=== PATIENT | female | born 1945 | race Caucasian/White ===

== ENCOUNTER → 2018-06-18 | Outpatient (CLI) | payer MEDICARE ==
[~2018-06-18] MED LIST: REGADENOSON 0.4 MG/5 ML SYRINGE ONE
== END | disposition home or self-care (01) ==
LOC: CVU 10:39
PROVIDERS: ATTEND Internal Medicine Cardiovascular Disease
DX: I08.0 Rheumatic disorders of both mitral and aortic valves (principal); I10 Essential (primary) hypertension; E78.5 Hyperlipidemia, unspecified
CPT/HCPCS: 78452; 93017; 93306; A9502; J2785

== ENCOUNTER 2018-12-13 04:00 | Inpatient (IN) | payer MEDICARE ==
[~2018-12-13] VITALS: Ht 172.7 cm; Wt 118.2 kg
--- NOTE | 2018-12-13 04:19 | NUR ---
PT BROUGHT BACK TO ROOM FROM [facility].
[2018-12-13] MEDS ORDERED: METO50TA82 PO (04:54)
[2018-12-13] MEDS ORDERED: ATOR10TA9 PO (04:54)
--- NOTE | 2018-12-13 05:05 | NUR ---
PT UNABLE TO VOID AT THIS TIME FOR UA. AMBULATORY WITH STEADY GAIT.
[2018-12-13 05:22] LABS: MEAN CORPUSCULAR HEMOGLOBIN 29.4 pg (27.0-34.8); MEAN CORPUSCULAR HGB CONC 33.2 g/dL (32.4-35.8); MEAN CORPUSCULAR VOLUME 88.4 fL (80-100); MEAN PLATELET VOLUME 9.6 fL (7.4-10.4); PLATELET COUNT 445 x10^3/uL (130-400); RED BLOOD COUNT 4.61 x10^6/uL (3.82-5.3); RED CELL DISTRIBUTION WIDTH 14.1 % (9.6-15.2)
[2018-12-13 05:32] LABS: ALBUMIN 2.4 g/dL (3.4-5.0); ANION GAP 10 mmol/L (5-15); CALCIUM 8.6 mg/dL (8.5-10.1); CHLORIDE 100 mmol/L (98-107)
[2018-12-13 05:36] LABS: ALANINE AMINOTRANSFERASE 27 U/L (12-78); ALKALINE PHOSPHATASE 149 U/L (45-117); BILIRUBIN,TOTAL 0.8 mg/dL (0.2-1.0); CREATININE 0.79 mg/dL (0.55-1.02); TOTAL PROTEIN 7.2 g/dL (6.4-8.2)
[2018-12-13 06:11] LABS: <PLATELET ESTIMATE> INCREASED; <PLT MORPHOLOGY> NORMAL PLT MORPH; <RBC MORPHOLOGY> NORMAL; BASOPHILS # (AUTO) 0.03 x10^3/uL (0-0.1); BASOPHILS % (AUTO) 0 % (0-1); EOSINOPHILS # (AUTO) 0.05 x10^3/uL (0-0.4); EOSINOPHILS % (AUTO) 0 % (1-7); LYMPHOCYTES % (AUTO) 9 % (22-44); MD MORPH REVIEW ONLY; MONOCYTES # (AUTO) 1.75 x10^3/uL (0.2-0.8); MONOCYTES % (AUTO) 9 % (2-9); NEUTROPHILS # (AUTO) 16.02 x10^3/uL (1.8-6.8); NEUTROPHILS % (AUTO) 82 % (42-75); TOXIC GRAN 1+
[2018-12-13] MEDS ORDERED: OMNIPAQUE 350 MG/ML, 100ML BOTTLE ONE (06:32)
[2018-12-13] MEDS ORDERED: DICYCLOMINE 20 MG TABLET ONE (06:53)
[2018-12-13] MEDS ORDERED: DICYCLOMINE 20 MG TABLET PO ONE (07:00)
--- NOTE | 2018-12-13 07:05 | NUR ---
PT PLACED ON OXYGEN. MD NOTIFIED.
--- NOTE | 2018-12-13 07:06 | NUR ---
PT RESTING IN BED. DENIES ANY NEEDS OR CONCERNS AT THIS TIME.
--- NOTE | 2018-12-13 07:06 | NUR ---
REPORT GIVEN TO DAMION GONZALEZ.
[2018-12-13 07:45] LABS: MICROSCOPIC NOT IND
--- NOTE | 2018-12-13 07:54 | NUR ---
ERP AND THIS NURSE AT BEDSIDE TO UPDATE PATIENT ON PLAN OF CARE. PT VERBALIZES UNDERSTANDING. DENIES ANY NEEDS OR CONCERNS AT THIS TIME.
[2018-12-13 07:58] LABS: CULTURE INDICATED? NO
[2018-12-13] MEDS ORDERED: METRONIDAZOLE PMX 500MG/100ML 100 ML ONE (08:25)
[2018-12-13] MEDS ORDERED: MORPHINE SULFATE 4 MG/ML, 1ML ONE ×2 (08:25→10:31)
[2018-12-13] MEDS ORDERED: SODIUM CHLORIDE 0.9% 1,000 ML IV ONE (08:30)
[2018-12-13] MEDS ORDERED: METRONIDAZOLE PMX 500MG/100ML 100 ML IV ONE (08:30)
[2018-12-13] MEDS ORDERED: AMPICILLIN/SULBACTAM 3 GM in SODIUM CHLORIDE 0.9% 100 ML IV ONE (08:30)
[2018-12-13] MEDS: MORPHINE SULFATE 4 MG/ML, 1ML IVPush PRN ×3 (08:37→19:54)
[2018-12-13] MEDS ORDERED: LACTATED RINGERS 1,000 ML IV SCH (09:00)
[2018-12-13] MEDS: ENOXAPARIN 40 MG/0.4 ML SQ SCH (09:00)
--- NOTE | 2018-12-13 09:35 | NUR ---
SURGEON AT BEDSIDE. PT UPDATED ON PLAN OF CARE. VERBALIZES UNDERSTANDING. DENIES ANY CURRENT NEEDS OR CONCERNS.
[2018-12-13 09:45] LABS: INTERNATIONAL NORMALIZED RATIO 1.02 (0.93-1.1); PROTHROMBIN TIME 10.7 Seconds (9.6-11.5)
--- NOTE | 2018-12-13 10:54 | NUR ---
PT AMBULATED TO RESTROOM, STRONG INDEPENDENT GAIT. RETURNED TO BED WITHOUT ISSUE. GIVEN MORPHINE PER REQUEST. EMOTIONAL SUPPORT PROVIDED, QUESTIONS ADDRESSED APPROPRIATE. PT RESTING AT THIS TIME. DENIES ANY FURTHER NEEDS OR CONCERNS.
--- NOTE | 2018-12-13 11:59 | NUR ---
PT RESTING IN BED, NAD NOTED.
[2018-12-13] MEDS ORDERED: FENTANYL PF 250 MCG/5ML ONE (13:08)
[2018-12-13] MEDS ORDERED: MIDAZOLAM 1 MG/ML, 2ML ONE (13:09)
[2018-12-13] MEDS ORDERED: SCOPOLAMINE PATCH, 1.5MG PATCH.TD72 TD ONE (13:33)
[2018-12-13] MEDS ORDERED: SUGAMMADEX 200 MG/2 ML IVPush ONE (15:05)
[2018-12-13] MEDS ORDERED: PROPOFOL 10 MG/ML, 20ML ONE (15:06)
[2018-12-13] MEDS ORDERED: NEOSTIGMINE 1 MG/ML, 10ML ONE (15:06)
[2018-12-13] MEDS ORDERED: SUCCINYLCHOLINE 20 MG/ML, 10ML ONE (15:06)
[2018-12-13] MEDS ORDERED: CEFAZOLIN 1,000 MG ONE (15:06)
[2018-12-13] MEDS ORDERED: ONDANSETRON 2MG/ML, 2ML ONE (15:06)
[2018-12-13] MEDS ORDERED: KETOROLAC 30 MG/1 ML ONE (15:06)
[2018-12-13] MEDS ORDERED: DEXAMETHASONE 4 MG/ML, 1ML ONE (15:06)
[2018-12-13] MEDS ORDERED: GLYCOPYRROLATE 0.2MG/1ML, 5ML ONE (15:06)
[2018-12-13] MEDS ORDERED: ROCURONIUM 10MG/ML,5ML ONE (15:06)
[2018-12-13] MEDS ORDERED: FENTANYL PF 100 MCG/2ML ONE ×2 (15:06→15:48)
[2018-12-13] MEDS ORDERED: DIAZEPAM 5 MG/ML, 2ML IVPush PRN (15:30)
[2018-12-13] MEDS ORDERED: ACETAMINOPHEN 325 MG TABLET PO PRN (15:30)
[2018-12-13] MEDS ORDERED: ALBUTEROL SULFATE 2.5 MG/3 ML NPPB PRN (15:30)
[2018-12-13] MEDS ORDERED: MEPERIDINE/PF 25MG/0.5ML IVPush PRN (15:30)
[2018-12-13] MEDS ORDERED: hydrALAzine 20 MG/ML, 1ML IV PRN (15:30)
[2018-12-13] MEDS ORDERED: HYDROmorphone 2 MG/ML, 1ML IVPush PRN (15:30)
[2018-12-13] MEDS ORDERED: LABETALOL 5MG/ML, 20ML IV PRN (15:30)
[2018-12-13] MEDS ORDERED: OXYcodone 5 MG/5 ML ORAL.SOL UDC PO PRN (15:30)
[2018-12-13] MEDS ORDERED: PROMETHAZINE 25 MG/ML, 1ML IV PRN (15:30)
[2018-12-13] MEDS ORDERED: ACETAMINOPHEN 650 MG/20.3 ML UDC ONE (15:48)
[2018-12-13] MEDS ORDERED: OXYcodone 5 MG/5 ML ORAL.SOL UDC ONE (15:49)
[2018-12-13] MEDS: FENTANYL PF 100 MCG/2ML IV PRN ×3 (15:50→16:20)
[2018-12-13] MEDS: METRONIDAZOLE PMX 500MG/100ML 100 ML IV SCH (18:25)
[2018-12-13 19:31] VITALS: BP 102/65
[2018-12-13] MEDS: AMPICILLIN/SULBACTAM 3 GM in SODIUM CHLORIDE 0.9% 100 ML IV SCH (19:54)
[2018-12-13] MEDS: ATORVASTATIN 10 MG TABLET PO SCH (19:54)
[2018-12-14 00:43] VITALS: BP 99/55
[2018-12-14] MEDS: AMPICILLIN/SULBACTAM 3 GM in SODIUM CHLORIDE 0.9% 100 ML IV SCH ×4 (02:17→22:44)
[2018-12-14] MEDS: HYDROmorphone 2 MG/ML, 1ML IVPush PRN ×5 (02:23→19:36)
[2018-12-14] MEDS: METRONIDAZOLE PMX 500MG/100ML 100 ML IV SCH ×3 (02:58→18:03)
[2018-12-14 03:02] VITALS: BP 100/68
[2018-12-14 04:54] LABS: ANION GAP 9 mmol/L (5-15); CALCIUM 8.5 mg/dL (8.5-10.1); CHLORIDE 103 mmol/L (98-107)
[2018-12-14 04:57] LABS: CREATININE 0.83 mg/dL (0.55-1.02)
[2018-12-14 05:01] LABS: BASOPHILS % (AUTO) 0 % (0-1); EOSINOPHILS # (AUTO) 0.04 x10^3/uL (0-0.4); EOSINOPHILS % (AUTO) 0 % (1-7); LYMPHOCYTES # (AUTO) 0.79 x10^3/uL (1-3.4); LYMPHOCYTES % (AUTO) 5 % (22-44); MD NO; MEAN CORPUSCULAR HEMOGLOBIN 29.1 pg (27.0-34.8); MEAN CORPUSCULAR HGB CONC 32.5 g/dL (32.4-35.8); MEAN CORPUSCULAR VOLUME 89.5 fL (80-100); MEAN PLATELET VOLUME 9.4 fL (7.4-10.4); MONOCYTES # (AUTO) 0.61 x10^3/uL (0.2-0.8); MONOCYTES % (AUTO) 4 % (2-9); NEUTROPHILS # (AUTO) 13.44 x10^3/uL (1.8-6.8); NEUTROPHILS % (AUTO) 90 % (42-75); PLATELET COUNT 412 x10^3/uL (130-400); RED BLOOD COUNT 4.53 x10^6/uL (3.82-5.3); RED CELL DISTRIBUTION WIDTH 14.3 % (9.6-15.2)
[2018-12-14] MEDS: LACTATED RINGERS 1,000 ML IV SCH ×3 (05:11→18:03)
[2018-12-14 06:55] VITALS: BP 104/63
[2018-12-14] MEDS ORDERED: SODIUM CHLORIDE 0.9% 1,000ML IVBOLUS ONE ×2 (07:30)
[2018-12-14] MEDS ORDERED: PHENOL THROAT SPRAY BOTTLE MM PRN (07:30)
[2018-12-14 11:00] VITALS: BP 100/58
[2018-12-14] MEDS: METOPROLOL TARTRATE 50 MG TABLET PO SCH (11:04)
[2018-12-14] MEDS: ENOXAPARIN 40 MG/0.4 ML SQ SCH (11:05)
[2018-12-14 12:58] VITALS: BP 112/67
[2018-12-14 20:00] VITALS: BP 116/71
[2018-12-14] MEDS: ATORVASTATIN 10 MG TABLET PO SCH (22:43)
[2018-12-14] MEDS: HYDROcodone/APAP 5/325 TABLET PO PRN (22:43)
[2018-12-15 00:30] VITALS: BP 120/73
[2018-12-15] MEDS: LACTATED RINGERS 1,000 ML IV SCH (01:55)
[2018-12-15] MEDS: HYDROmorphone 2 MG/ML, 1ML IVPush PRN ×4 (02:04→15:01)
[2018-12-15] MEDS: METRONIDAZOLE PMX 500MG/100ML 100 ML IV SCH ×3 (03:04→20:15)
[2018-12-15 04:30] LABS: MEAN CORPUSCULAR HEMOGLOBIN 28.5 pg (27.0-34.8); MEAN CORPUSCULAR HGB CONC 32.4 g/dL (32.4-35.8); MEAN CORPUSCULAR VOLUME 87.7 fL (80-100); MEAN PLATELET VOLUME 9.3 fL (7.4-10.4); PLATELET COUNT 456 x10^3/uL (130-400); RED BLOOD COUNT 4.18 x10^6/uL (3.82-5.3); RED CELL DISTRIBUTION WIDTH 14.6 % (9.6-15.2)
[2018-12-15 04:36] LABS: ALANINE AMINOTRANSFERASE 26 U/L (12-78); ALBUMIN 1.5 g/dL (3.4-5.0); ANION GAP 7 mmol/L (5-15); CALCIUM 8.2 mg/dL (8.5-10.1); CHLORIDE 106 mmol/L (98-107); CREATININE 0.76 mg/dL (0.55-1.02)
[2018-12-15 04:38] LABS: ALKALINE PHOSPHATASE 125 U/L (45-117); BILIRUBIN,TOTAL 0.5 mg/dL (0.2-1.0); TOTAL PROTEIN 5.5 g/dL (6.4-8.2)
[2018-12-15 04:40] LABS: MD YES
[2018-12-15 05:06] LABS: BAND#(MANUAL) 3.76 x10^3/uL; BANDS%(MANUAL) 18 % (0-7); LYMPH#(MANUAL) 1.46 x10^3/uL (1-3.4); LYMPHS% (MANUAL) 7 % (22-44); MONOS#(MANUAL) 1.05 x10^3/uL (0.3-2.7); MONOS% (MANUAL) 5 % (2-9); SEG#(MANUAL) 14.63 x10^3/uL (1.8-6.8); SEGS% (MANUAL) 70 % (42-75)
[2018-12-15 05:07] LABS: <PLATELET ESTIMATE> INCREASED; <PLT MORPHOLOGY> NORMAL PLT MORPH; ANISOCYTOSIS 1+; POLYCHROMASIA 1+; TOXIC GRAN 1+
[2018-12-15] MEDS ORDERED: SODIUM CHLORIDE 0.9%, 500ML IVBOLUS ONE (05:30)
[2018-12-15] MEDS: AMPICILLIN/SULBACTAM 3 GM in SODIUM CHLORIDE 0.9% 100 ML IV SCH ×4 (05:33→22:36)
[2018-12-15 07:49] VITALS: BP 130/56
[2018-12-15 09:20] VITALS: BP 116/56
[2018-12-15] MEDS: ENOXAPARIN 40 MG/0.4 ML SQ SCH (09:22)
[2018-12-15] MEDS: METOPROLOL TARTRATE 50 MG TABLET PO SCH (09:22)
[2018-12-15] MEDS: SODIUM CHLORIDE 0.9% 1,000 ML IV SCH ×4 (09:22→22:21)
[2018-12-15 12:52] VITALS: BP 115/83
[2018-12-15] MEDS ORDERED: FUROSEMIDE 20 MG/2 ML IV ONE (15:30)
[2018-12-15 19:38] VITALS: BP 108/69
[2018-12-15] MEDS: ATORVASTATIN 10 MG TABLET PO SCH (20:14)
[2018-12-15] MEDS: HYDROcodone/APAP 5/325 TABLET PO PRN (20:14)
[2018-12-16 00:55] VITALS: BP 120/72
[2018-12-16] MEDS: HYDROmorphone 2 MG/ML, 1ML IVPush PRN ×6 (01:02→21:47)
[2018-12-16] MEDS: SODIUM CHLORIDE 0.9% 1,000 ML IV SCH ×3 (03:41→19:38)
[2018-12-16 04:43] LABS: MEAN CORPUSCULAR HEMOGLOBIN 28.2 pg (27.0-34.8); MEAN CORPUSCULAR VOLUME 88.2 fL (80-100); PLATELET COUNT 431 x10^3/uL (130-400); RED BLOOD COUNT 3.78 x10^6/uL (3.82-5.3); RED CELL DISTRIBUTION WIDTH 14.7 % (9.6-15.2)
[2018-12-16 04:51] LABS: CHLORIDE 109 mmol/L (98-107)
[2018-12-16] MEDS: AMPICILLIN/SULBACTAM 3 GM in SODIUM CHLORIDE 0.9% 100 ML IV SCH ×4 (04:52→22:25)
[2018-12-16 05:00] LABS: ALANINE AMINOTRANSFERASE 19 U/L (12-78); ALBUMIN 1.4 g/dL (3.4-5.0); ALKALINE PHOSPHATASE 95 U/L (45-117); ANION GAP 7 mmol/L (5-15); BILIRUBIN,TOTAL 0.4 mg/dL (0.2-1.0); CREATININE 0.51 mg/dL (0.55-1.02); TOTAL PROTEIN 5.1 g/dL (6.4-8.2)
[2018-12-16] MEDS: METRONIDAZOLE PMX 500MG/100ML 100 ML IV SCH ×3 (05:25→21:10)
[2018-12-16 05:43] LABS: MD YES
[2018-12-16 05:45] LABS: <PLATELET ESTIMATE> INCREASED; <PLT MORPHOLOGY> NORMAL PLT MORPH; ANISOCYTOSIS 1+; BAND#(MANUAL) 0.95 x10^3/uL; BANDS%(MANUAL) 4 % (0-7); EOS#(MANUAL) 0.24 x10^3/uL (0.0-0.4); EOS% (MANUAL) 1 % (1-7); LYMPH#(MANUAL) 2.38 x10^3/uL (1-3.4); LYMPHS% (MANUAL) 10 % (22-44); MONOS#(MANUAL) 0.95 x10^3/uL (0.3-2.7); MONOS% (MANUAL) 4 % (2-9); POLYCHROMASIA 1+; SEG#(MANUAL) 19.28 x10^3/uL (1.8-6.8); SEGS% (MANUAL) 81 % (42-75)
[2018-12-16 05:46] LABS: TOXIC GRAN 1+
[2018-12-16 07:00] VITALS: BP 119/59
[2018-12-16] MEDS: METOPROLOL TARTRATE 50 MG TABLET PO SCH (09:00)
[2018-12-16] MEDS: ENOXAPARIN 40 MG/0.4 ML SQ SCH (09:18)
[2018-12-16] MEDS: PIPERACILLIN/TAZO/PMX 3.375GM 50 ML IV SCH ×2 (12:28→18:33)
[2018-12-16 12:49] VITALS: BP 119/70
[2018-12-16] MEDS: HYDROcodone/APAP 5/325 TABLET PO PRN (16:44)
[2018-12-16] MEDS: KETOROLAC 30 MG/1 ML IM SCH (19:38)
[2018-12-16 20:13] VITALS: BP 123/82
[2018-12-16] MEDS: ATORVASTATIN 10 MG TABLET PO SCH (21:00)
[2018-12-17] MEDS ORDERED: LORazepam 0.5MG TABLET PO PRN
[2018-12-17] MEDS: PIPERACILLIN/TAZO/PMX 3.375GM 50 ML IV SCH ×2 (00:04→06:38)
[2018-12-17] MEDS: KETOROLAC 30 MG/1 ML IM SCH ×4 (01:43→20:07)
[2018-12-17 03:08] VITALS: BP 122/76
[2018-12-17] MEDS: HYDROmorphone 2 MG/ML, 1ML IVPush PRN ×4 (03:36→15:46)
[2018-12-17] MEDS: AMPICILLIN/SULBACTAM 3 GM in SODIUM CHLORIDE 0.9% 100 ML IV SCH ×2 (04:28→10:33)
[2018-12-17 04:39] LABS: MEAN CORPUSCULAR HEMOGLOBIN 28.9 pg (27.0-34.8); MEAN CORPUSCULAR HGB CONC 32.3 g/dL (32.4-35.8); MEAN CORPUSCULAR VOLUME 89.4 fL (80-100); MEAN PLATELET VOLUME 9.2 fL (7.4-10.4); PLATELET COUNT 572 x10^3/uL (130-400); RED BLOOD COUNT 4.66 x10^6/uL (3.82-5.3); RED CELL DISTRIBUTION WIDTH 14.9 % (9.6-15.2)
[2018-12-17 04:50] LABS: ALBUMIN 1.3 g/dL (3.4-5.0); ANION GAP 10 mmol/L (5-15); CALCIUM 7.3 mg/dL (8.5-10.1); CHLORIDE 112 mmol/L (98-107)
[2018-12-17 04:52] LABS: CREATININE 0.81 mg/dL (0.55-1.02)
[2018-12-17] MEDS: SODIUM CHLORIDE 0.9% 1,000 ML IV SCH ×3 (05:15→10:15)
[2018-12-17] MEDS: METRONIDAZOLE PMX 500MG/100ML 100 ML IV SCH (05:15)
[2018-12-17 05:29] LABS: MD YES
[2018-12-17 05:31] LABS: BAND#(MANUAL) 1.52 x10^3/uL; BANDS%(MANUAL) 4 % (0-7); LYMPH#(MANUAL) 0.38 x10^3/uL (1-3.4); LYMPHS% (MANUAL) 1 % (22-44); MONOS#(MANUAL) 1.91 x10^3/uL (0.3-2.7); MONOS% (MANUAL) 5 % (2-9); SEG#(MANUAL) 34.29 x10^3/uL (1.8-6.8); SEGS% (MANUAL) 90 % (42-75)
[2018-12-17 05:32] LABS: <PLATELET ESTIMATE> INCREASED; <PLT MORPHOLOGY> NORMAL PLT MORPH; ANISOCYTOSIS 1+
[2018-12-17 07:11] VITALS: BP 136/62
[2018-12-17] MEDS: METOPROLOL TARTRATE 50 MG TABLET PO SCH ×2 (07:35→09:00)
[2018-12-17] MEDS ORDERED: OMNIPAQUE 350 MG/ML, 150 ML BOTTLE ONE (08:18)
[2018-12-17] MEDS: ENOXAPARIN 40 MG/0.4 ML SQ SCH (10:15)
[2018-12-17] MEDS: PIPERACILLIN/TAZO/PMX 4.5GM 100 ML IV SCH ×2 (13:08→20:47)
[2018-12-17] MEDS ORDERED: HAEMOPH B POLY CONJ-TET TOX/PF 10 MCG/0.5 ML INJ IM-VACC ONE (13:30)
[2018-12-17] MEDS ORDERED: MENING VAC A,C,Y,W-135 DIP/PF 0.5 ML AGE<55 IM-VACC ONE (13:30)
[2018-12-17] MEDS ORDERED: PNEUMOCOCCAL 23 VACCINE IM-VACC ONE (13:30)
[2018-12-17] MEDS: SODIUM CHLORIDE 0.45% 1,000 ML IV SCH ×2 (14:23→22:35)
[2018-12-17 15:35] VITALS: BP 125/77
[2018-12-17] MEDS: FLUCONAZOLE 400 MG/200 ML 200 ML IV SCH (15:46)
[2018-12-17 19:25] VITALS: BP 112/70
[2018-12-17] MEDS: ATORVASTATIN 10 MG TABLET PO SCH (20:07)
[2018-12-18] MEDS: ONDANSETRON 2MG/ML, 2ML IVPush PRN ×2 (00:51→05:40)
[2018-12-18 01:16] VITALS: BP 101/65
[2018-12-18] MEDS: PIPERACILLIN/TAZO/PMX 4.5GM 100 ML IV SCH ×4 (01:58→21:16)
[2018-12-18] MEDS: KETOROLAC 30 MG/1 ML IM SCH ×4 (01:59→21:15)
[2018-12-18] MEDS: SODIUM CHLORIDE 0.45% 1,000 ML IV SCH ×2 (02:01→17:28)
[2018-12-18 05:02] LABS: ANION GAP 11 mmol/L (5-15); CALCIUM 6.6 mg/dL (8.5-10.1); CHLORIDE 112 mmol/L (98-107); CREATININE 1.24 mg/dL (0.55-1.02)
[2018-12-18 05:04] LABS: MEAN CORPUSCULAR HEMOGLOBIN 28.8 pg (27.0-34.8); MEAN CORPUSCULAR HGB CONC 32.4 g/dL (32.4-35.8); MEAN CORPUSCULAR VOLUME 88.7 fL (80-100); MEAN PLATELET VOLUME 9.3 fL (7.4-10.4); PLATELET COUNT 570 x10^3/uL (130-400); RED BLOOD COUNT 4.39 x10^6/uL (3.82-5.3); RED CELL DISTRIBUTION WIDTH 15.3 % (9.6-15.2)
[2018-12-18 05:51] LABS: MD YES
[2018-12-18 05:52] LABS: BAND#(MANUAL) 0.73 x10^3/uL; BANDS%(MANUAL) 2 % (0-7); LYMPH#(MANUAL) 2.55 x10^3/uL (1-3.4); LYMPHS% (MANUAL) 7 % (22-44); MONOS#(MANUAL) 1.09 x10^3/uL (0.3-2.7); MONOS% (MANUAL) 3 % (2-9); SEG#(MANUAL) 32.03 x10^3/uL (1.8-6.8); SEGS% (MANUAL) 88 % (42-75)
[2018-12-18 05:53] LABS: ANISOCYTOSIS 1+
[2018-12-18 05:55] LABS: <PLATELET ESTIMATE> INCREASED; LARGE PLATELETS 1+; PMNS WITH VACUOLES 1+; POLYCHROMASIA 1+
[2018-12-18 06:55] VITALS: BP 112/75
[2018-12-18] MEDS ORDERED: POTASSIUM CHLORIDE 20 MEQ in SODIUM CHLORIDE 0.9% 250 ML IV ONE (08:00)
[2018-12-18] MEDS: METOPROLOL TARTRATE 50 MG TABLET PO SCH (08:16)
[2018-12-18] MEDS: ENOXAPARIN 40 MG/0.4 ML SQ SCH (08:18)
[2018-12-18] MEDS ORDERED: TPN PER PHARMACY MC PRN (10:30)
[2018-12-18 13:41] VITALS: BP 110/73
[2018-12-18] MEDS: FLUCONAZOLE 400 MG/200 ML 200 ML IV SCH (14:22)
[2018-12-18] MEDS ORDERED: 0.9 % SODIUM CHLORIDE 10 ML VIAL IV STA (15:31)
[2018-12-18] MEDS ORDERED: SODIUM CHLORIDE 0.9% 1,000ML IV ONE (16:30)
[2018-12-18] MEDS ORDERED: LORazepam 2 MG/ML, 1ML IVPush ONE (16:30)
[2018-12-18] MEDS: HYDROmorphone 2 MG/ML, 1ML IVPush PRN (16:56)
[2018-12-18] MEDS ORDERED: DEXTROSE 50%, 50ML SYRINGE IVPush PRN (17:00)
[2018-12-18] MEDS ORDERED: FILTER, DISP 1.2 MICRON FOR TPN/PVN IV PRN (17:00)
[2018-12-18] MEDS ORDERED: DEXTROSE 70% IV SCH (17:00)
[2018-12-18] MEDS ORDERED: [UNRECOGNIZED DRUG - OTHER] IV SCH (17:00)
[2018-12-18] MEDS ORDERED: DEXTROSE 10% 500 ML IV PRN (17:00)
[2018-12-18] MEDS ORDERED: SMOF TPN IV SCH (17:00)
[2018-12-18] MEDS ORDERED: FAT EMUL IV SCH (17:00)
[2018-12-18] MEDS ORDERED: AMINO ACID 10% IV SCH (17:00)
[2018-12-18 20:45] VITALS: BP 119/77
[2018-12-18] MEDS: INSULIN REGULAR MEDIUM DOSE Q6H X 48HRS SQ-INSULIN SCH (21:00)
[2018-12-18] MEDS ORDERED: LORazepam 2 MG/ML, 1ML ONE (21:11)
[2018-12-19] MEDS: SODIUM CHLORIDE 0.45% 1,000 ML IV SCH ×2 (00:49→20:18)
[2018-12-19 01:05] VITALS: BP 117/70
[2018-12-19] MEDS: PIPERACILLIN/TAZO/PMX 4.5GM 100 ML IV SCH ×4 (02:30→23:21)
[2018-12-19] MEDS: KETOROLAC 30 MG/1 ML IM SCH (02:30)
[2018-12-19] MEDS: INSULIN REGULAR MEDIUM DOSE Q6H X 48HRS SQ-INSULIN SCH ×4 (03:31→21:43)
[2018-12-19 05:36] LABS: MEAN CORPUSCULAR HEMOGLOBIN 28.7 pg (27.0-34.8); MEAN CORPUSCULAR HGB CONC 32.6 g/dL (32.4-35.8); MEAN CORPUSCULAR VOLUME 88.1 fL (80-100); MEAN PLATELET VOLUME 8.8 fL (7.4-10.4); PLATELET COUNT 456 x10^3/uL (130-400); RED BLOOD COUNT 3.81 x10^6/uL (3.82-5.3); RED CELL DISTRIBUTION WIDTH 15.5 % (9.6-15.2)
[2018-12-19 05:46] LABS: ALBUMIN 1.1 g/dL (3.4-5.0); ANION GAP 9 mmol/L (5-15); CALCIUM 6.9 mg/dL (8.5-10.1); CHLORIDE 112 mmol/L (98-107)
[2018-12-19 05:53] LABS: MD YES
[2018-12-19 05:55] LABS: BAND#(MANUAL) 1.31 x10^3/uL; BANDS%(MANUAL) 4 % (0-7); LYMPH#(MANUAL) 2.94 x10^3/uL (1-3.4); LYMPHS% (MANUAL) 9 % (22-44); METAMYELOCYTES# (MANUAL) 0.33 x10^3/uL (0-0); METAMYELOCYTES% (MANUAL) 1 % (0-1); MONOS#(MANUAL) 0.33 x10^3/uL (0.3-2.7); MONOS% (MANUAL) 1 % (2-9); NRBC % (MANUAL) 2 % (0-1); SEGS% (MANUAL) 85 % (42-75)
[2018-12-19 05:56] LABS: <PLATELET ESTIMATE> INCREASED; ANISOCYTOSIS 1+; POLYCHROMASIA 1+
[2018-12-19 05:57] LABS: <PLT MORPHOLOGY> NORMAL PLT MORPH
[2018-12-19] MEDS ORDERED: POTASSIUM CHLORIDE 20 MEQ in SODIUM CHLORIDE 0.9% 250 ML IV ONE ×2 (06:00→06:07)
[2018-12-19 06:02] LABS: ALANINE AMINOTRANSFERASE 18 U/L (12-78); ALKALINE PHOSPHATASE 155 U/L (45-117); BILIRUBIN,TOTAL 0.5 mg/dL (0.2-1.0); CREATININE 1.12 mg/dL (0.55-1.02); PREALBUMIN 3.4 mg/dL (20.0-40.0); TOTAL PROTEIN 4.8 g/dL (6.4-8.2); TRIGLYCERIDES 183 mg/dL (50-200)
[2018-12-19 08:50] VITALS: BP 121/66
[2018-12-19] MEDS: KETOROLAC 30 MG/1 ML IM/IV SCH ×3 (09:40→20:14)
[2018-12-19] MEDS: PANTOPRAZOLE 40 MG IV IVPush SCH (09:42)
[2018-12-19] MEDS: ENOXAPARIN 40 MG/0.4 ML SQ SCH (09:43)
[2018-12-19 13:37] VITALS: BP 115/72
[2018-12-19] MEDS: FLUCONAZOLE 400 MG/200 ML 200 ML IV SCH (15:14)
[2018-12-19 16:01] LABS: HCT (SEDRATE) 32.3 % (34.6-47.8)
[2018-12-19] MEDS ORDERED: [UNRECOGNIZED DRUG - OTHER] IV SCH (17:00)
[2018-12-19] MEDS ORDERED: FILTER, DISP 1.2 MICRON FOR TPN/PVN IV PRN (17:00)
[2018-12-19] MEDS ORDERED: DEXTROSE 70% IV SCH (17:00)
[2018-12-19] MEDS ORDERED: SMOF TPN IV SCH (17:00)
[2018-12-19] MEDS ORDERED: FAT EMUL IV SCH (17:00)
[2018-12-19] MEDS ORDERED: AMINO ACID 10% IV SCH (17:00)
[2018-12-19 19:49] VITALS: BP 127/61
[2018-12-19] MEDS: HYDROmorphone 2 MG/ML, 1ML IVPush PRN (23:28)
[2018-12-20 01:40] VITALS: BP 122/76
[2018-12-20] MEDS: KETOROLAC 30 MG/1 ML IM/IV SCH ×4 (02:35→20:10)
[2018-12-20] MEDS: INSULIN REGULAR MEDIUM DOSE Q6H X 48HRS SQ-INSULIN SCH ×3 (03:35→16:37)
[2018-12-20] MEDS: PIPERACILLIN/TAZO/PMX 4.5GM 100 ML IV SCH (04:49)
[2018-12-20 05:47] LABS: CHLORIDE 112 mmol/L (98-107)
[2018-12-20 05:55] LABS: ANION GAP 7 mmol/L (5-15); CALCIUM 7.2 mg/dL (8.5-10.1); CREATININE 0.86 mg/dL (0.55-1.02)
[2018-12-20 06:45] VITALS: BP 137/84
[2018-12-20 07:45] LABS: MEAN CORPUSCULAR HEMOGLOBIN 28.1 pg (27.0-34.8); MEAN CORPUSCULAR HGB CONC 32.2 g/dL (32.4-35.8); MEAN CORPUSCULAR VOLUME 87.4 fL (80-100); MEAN PLATELET VOLUME 8.9 fL (7.4-10.4); PLATELET COUNT 447 x10^3/uL (130-400); RED BLOOD COUNT 3.78 x10^6/uL (3.82-5.3); RED CELL DISTRIBUTION WIDTH 15.7 % (9.6-15.2)
[2018-12-20 08:29] LABS: MD YES
[2018-12-20 08:31] LABS: <PLATELET ESTIMATE> INCREASED; <PLT MORPHOLOGY> NORMAL PLT MORPH; ANISOCYTOSIS 1+; BANDS%(MANUAL) 15 % (0-7); LYMPH#(MANUAL) 2.52 x10^3/uL (1-3.4); LYMPHS% (MANUAL) 7 % (22-44); METAMYELOCYTES# (MANUAL) 0.36 x10^3/uL (0-0); METAMYELOCYTES% (MANUAL) 1 % (0-1); MONOS#(MANUAL) 1.08 x10^3/uL (0.3-2.7); MONOS% (MANUAL) 3 % (2-9); MYELOCYTES# (MANUAL) 0.36 x10^3/uL (0-0); MYELOCYTES% (MANUAL) 1 % (0-0); POLYCHROMASIA 1+; SEG#(MANUAL) 26.28 x10^3/uL (1.8-6.8); SEGS% (MANUAL) 73 % (42-75); TOXIC GRAN 1+
[2018-12-20 08:33] LABS: PMNS WITH VACUOLES 1+
[2018-12-20] MEDS: AMPICILLIN/SULBACTAM 3 GM in SODIUM CHLORIDE 0.9% 100 ML IV SCH ×3 (08:53→20:12)
[2018-12-20] MEDS: PANTOPRAZOLE 40 MG IV IVPush SCH (08:57)
[2018-12-20] MEDS: ENOXAPARIN 40 MG/0.4 ML SQ SCH (09:00)
[2018-12-20 12:23] VITALS: BP 137/82
[2018-12-20] MEDS ORDERED: [UNRECOGNIZED DRUG - OTHER] IV SCH (17:00)
[2018-12-20] MEDS ORDERED: SMOF TPN IV SCH (17:00)
[2018-12-20] MEDS ORDERED: FILTER, DISP 1.2 MICRON FOR TPN/PVN IV PRN (17:00)
[2018-12-20] MEDS ORDERED: AMINO ACID 10% IV SCH (17:00)
[2018-12-20] MEDS ORDERED: DEXTROSE 70% IV SCH (17:00)
[2018-12-20] MEDS ORDERED: FAT EMUL IV SCH (17:00)
[2018-12-20] MEDS: HYDROmorphone 2 MG/ML, 1ML IVPush PRN (17:19)
[2018-12-20 19:15] VITALS: BP 138/64
[2018-12-21] VITALS (8 sets, daily range): BP systolic 111–175; BP diastolic 72–104
[2018-12-21] MEDS: HYDROmorphone 2 MG/ML, 1ML IVPush PRN ×3 (00:16→20:00)
[2018-12-21] MEDS: KETOROLAC 30 MG/1 ML IM/IV SCH ×4 (02:17→21:27)
[2018-12-21] MEDS: AMPICILLIN/SULBACTAM 3 GM in SODIUM CHLORIDE 0.9% 100 ML IV SCH ×4 (02:19→21:26)
[2018-12-21] MEDS: SODIUM CHLORIDE 0.45% 1,000 ML IV SCH ×2 (04:56→23:25)
[2018-12-21 05:16] LABS: MEAN CORPUSCULAR HEMOGLOBIN 29.1 pg (27.0-34.8); MEAN CORPUSCULAR HGB CONC 32.7 g/dL (32.4-35.8); MEAN CORPUSCULAR VOLUME 88.9 fL (80-100); PLATELET COUNT 394 x10^3/uL (130-400); RED BLOOD COUNT 3.59 x10^6/uL (3.82-5.3); RED CELL DISTRIBUTION WIDTH 16.2 % (9.6-15.2)
[2018-12-21 05:25] LABS: ANION GAP 3 mmol/L (5-15); CALCIUM 7.7 mg/dL (8.5-10.1); CHLORIDE 113 mmol/L (98-107); CREATININE 0.65 mg/dL (0.55-1.02)
[2018-12-21 05:36] LABS: MD YES
[2018-12-21 05:39] LABS: BAND#(MANUAL) 4.75 x10^3/uL; BANDS%(MANUAL) 13 % (0-7); EOS#(MANUAL) 0.37 x10^3/uL (0.0-0.4); EOS% (MANUAL) 1 % (1-7); LYMPH#(MANUAL) 3.65 x10^3/uL (1-3.4); LYMPHS% (MANUAL) 10 % (22-44); MONOS#(MANUAL) 1.46 x10^3/uL (0.3-2.7); MONOS% (MANUAL) 4 % (2-9); MYELOCYTES# (MANUAL) 0.37 x10^3/uL (0-0); MYELOCYTES% (MANUAL) 1 % (0-0); NRBC % (MANUAL) 1 % (0-1); SEG#(MANUAL) 25.92 x10^3/uL (1.8-6.8); SEGS% (MANUAL) 71 % (42-75)
[2018-12-21 05:41] LABS: <PLATELET ESTIMATE> INCREASED; <PLT MORPHOLOGY> NORMAL PLT MORPH; ANISOCYTOSIS 1+; POLYCHROMASIA 1+; TOXIC GRAN 1+
[2018-12-21] MEDS: PANTOPRAZOLE 40 MG IV IVPush SCH (07:51)
[2018-12-21] MEDS: ENOXAPARIN 40 MG/0.4 ML SQ SCH (07:51)
[2018-12-21] MEDS ORDERED: INSULIN REGULAR MEDIUM DOSE QDAY SQ-INSULIN SCH (09:00)
[2018-12-21] MEDS ORDERED: AMINO ACID 10% IV SCH (17:00)
[2018-12-21] MEDS ORDERED: FAT EMUL IV SCH (17:00)
[2018-12-21] MEDS ORDERED: [UNRECOGNIZED DRUG - OTHER] IV SCH (17:00)
[2018-12-21] MEDS ORDERED: DEXTROSE 70% IV SCH (17:00)
[2018-12-21] MEDS ORDERED: SMOF TPN IV SCH (17:00)
[2018-12-21] MEDS: INSULIN REGULAR MEDIUM DOSE QDAY SQ-INSULIN SCH (21:45)
[2018-12-22 00:22] VITALS: BP 139/84
[2018-12-22] MEDS: KETOROLAC 30 MG/1 ML IM/IV SCH ×4 (03:22→21:46)
[2018-12-22] MEDS: AMPICILLIN/SULBACTAM 3 GM in SODIUM CHLORIDE 0.9% 100 ML IV SCH ×4 (03:26→21:47)
[2018-12-22] MEDS: INSULIN REGULAR MEDIUM DOSE QDAY SQ-INSULIN SCH ×4 (03:27→21:00)
[2018-12-22 06:02] LABS: MEAN CORPUSCULAR HGB CONC 32.5 g/dL (32.4-35.8); MEAN CORPUSCULAR VOLUME 89.2 fL (80-100); MEAN PLATELET VOLUME 8.9 fL (7.4-10.4); PLATELET COUNT 338 x10^3/uL (130-400); RED BLOOD COUNT 3.37 x10^6/uL (3.82-5.3); RED CELL DISTRIBUTION WIDTH 16.3 % (9.6-15.2)
[2018-12-22 06:04] LABS: ALANINE AMINOTRANSFERASE 17 U/L (12-78); ALBUMIN 1.1 g/dL (3.4-5.0); ANION GAP 5 mmol/L (5-15); CALCIUM 7.8 mg/dL (8.5-10.1); CHLORIDE 110 mmol/L (98-107); CREATININE 0.53 mg/dL (0.55-1.02)
[2018-12-22 06:06] LABS: ALKALINE PHOSPHATASE 210 U/L (45-117); BILIRUBIN,TOTAL 0.6 mg/dL (0.2-1.0); TOTAL PROTEIN 4.9 g/dL (6.4-8.2)
[2018-12-22 06:40] LABS: BASOPHILS % (AUTO) 0 % (0-1); EOSINOPHILS # (AUTO) 0.37 x10^3/uL (0-0.4); EOSINOPHILS % (AUTO) 1 % (1-7); LYMPHOCYTES % (AUTO) 4 % (22-44); MD SCAN; MONOCYTES # (AUTO) 1.32 x10^3/uL (0.2-0.8); MONOCYTES % (AUTO) 5 % (2-9); NEUTROPHILS # (AUTO) 25.16 x10^3/uL (1.8-6.8); NEUTROPHILS % (AUTO) 89 % (42-75)
[2018-12-22 07:32] VITALS: BP 133/78
[2018-12-22] MEDS: PANTOPRAZOLE 40 MG IV IVPush SCH (09:27)
[2018-12-22] MEDS: ENOXAPARIN 40 MG/0.4 ML SQ SCH (09:27)
[2018-12-22] MEDS: SODIUM CHLORIDE 0.45% 1,000 ML IV SCH ×2 (09:28→20:14)
[2018-12-22 14:11] VITALS: BP 143/79
[2018-12-22] MEDS ORDERED: SMOF TPN IV SCH (17:00)
[2018-12-22] MEDS ORDERED: AMINO ACID 10% IV SCH (17:00)
[2018-12-22] MEDS ORDERED: [UNRECOGNIZED DRUG - OTHER] IV SCH (17:00)
[2018-12-22] MEDS ORDERED: DEXTROSE 70% IV SCH (17:00)
[2018-12-22] MEDS ORDERED: FAT EMUL IV SCH (17:00)
[2018-12-22] MEDS: FILTER, DISP 1.2 MICRON FOR TPN/PVN IV PRN (17:44)
[2018-12-22] MEDS: ONDANSETRON 2MG/ML, 2ML IVPush PRN (18:06)
[2018-12-22] MEDS: HYDROmorphone 2 MG/ML, 1ML IVPush PRN (18:06)
[2018-12-22 20:19] VITALS: BP 119/74
[2018-12-23 01:22] VITALS: BP 127/81
[2018-12-23] MEDS: AMPICILLIN/SULBACTAM 3 GM in SODIUM CHLORIDE 0.9% 100 ML IV SCH ×4 (03:22→21:45)
[2018-12-23] MEDS: KETOROLAC 30 MG/1 ML IM/IV SCH ×4 (03:22→21:45)
[2018-12-23] MEDS: INSULIN REGULAR MEDIUM DOSE QDAY SQ-INSULIN SCH ×4 (03:26→21:00)
[2018-12-23] MEDS: SODIUM CHLORIDE 0.45% 1,000 ML IV SCH ×3 (04:52→23:24)
[2018-12-23 05:16] LABS: MEAN CORPUSCULAR HEMOGLOBIN 29.2 pg (27.0-34.8); MEAN CORPUSCULAR HGB CONC 32.8 g/dL (32.4-35.8); MEAN CORPUSCULAR VOLUME 89.1 fL (80-100); MEAN PLATELET VOLUME 9.2 fL (7.4-10.4); PLATELET COUNT 369 x10^3/uL (130-400); RED BLOOD COUNT 3.21 x10^6/uL (3.82-5.3); RED CELL DISTRIBUTION WIDTH 16.3 % (9.6-15.2)
[2018-12-23 05:25] LABS: CHLORIDE 110 mmol/L (98-107)
[2018-12-23 05:34] LABS: ALANINE AMINOTRANSFERASE 17 U/L (12-78); ALBUMIN 1.1 g/dL (3.4-5.0); ALKALINE PHOSPHATASE 222 U/L (45-117); ANION GAP 4 mmol/L (5-15); BILIRUBIN,TOTAL 0.5 mg/dL (0.2-1.0); CALCIUM 7.9 mg/dL (8.5-10.1); PREALBUMIN 4.9 mg/dL (20.0-40.0); TOTAL PROTEIN 4.9 g/dL (6.4-8.2)
[2018-12-23 05:52] LABS: MD YES
[2018-12-23 05:54] LABS: BAND#(MANUAL) 0.71 x10^3/uL; BANDS%(MANUAL) 3 % (0-7); EOS#(MANUAL) 0.71 x10^3/uL (0.0-0.4); EOS% (MANUAL) 3 % (1-7); LYMPH#(MANUAL) 1.42 x10^3/uL (1-3.4); LYMPHS% (MANUAL) 6 % (22-44); MONOS#(MANUAL) 2.36 x10^3/uL (0.3-2.7); MONOS% (MANUAL) 10 % (2-9); SEG#(MANUAL) 18.41 x10^3/uL (1.8-6.8); SEGS% (MANUAL) 78 % (42-75)
[2018-12-23 05:55] LABS: <PLATELET ESTIMATE> ADEQUATE; <PLT MORPHOLOGY> NORMAL PLT MORPH; ANISOCYTOSIS 1+; POLYCHROMASIA 1+; TOXIC GRAN 1+
[2018-12-23 08:08] VITALS: BP 138/77
[2018-12-23] MEDS: PANTOPRAZOLE 40 MG IV IVPush SCH (08:08)
[2018-12-23] MEDS: ENOXAPARIN 40 MG/0.4 ML SQ SCH (08:08)
[2018-12-23] MEDS: HYDROmorphone 2 MG/ML, 1ML IVPush PRN ×2 (13:50→22:11)
[2018-12-23 14:21] VITALS: BP 145/76
[2018-12-23] MEDS ORDERED: AMINO ACID 10% IV SCH (17:00)
[2018-12-23] MEDS ORDERED: [UNRECOGNIZED DRUG - OTHER] IV SCH (17:00)
[2018-12-23] MEDS ORDERED: DEXTROSE 70% IV SCH (17:00)
[2018-12-23] MEDS ORDERED: FAT EMUL IV SCH (17:00)
[2018-12-23] MEDS ORDERED: SMOF TPN IV SCH (17:00)
[2018-12-23 19:34] VITALS: BP 120/75
[2018-12-24 01:33] VITALS: BP 123/74
[2018-12-24] MEDS: INSULIN REGULAR MEDIUM DOSE QDAY SQ-INSULIN SCH ×3 (03:00→15:00)
[2018-12-24] MEDS: AMPICILLIN/SULBACTAM 3 GM in SODIUM CHLORIDE 0.9% 100 ML IV SCH ×4 (03:11→21:04)
[2018-12-24] MEDS: KETOROLAC 30 MG/1 ML IM/IV SCH (03:11)
[2018-12-24 03:34] LABS: MEAN CORPUSCULAR VOLUME 87.8 fL (80-100); MEAN PLATELET VOLUME 9.1 fL (7.4-10.4); PLATELET COUNT 400 x10^3/uL (130-400); RED BLOOD COUNT 3.22 x10^6/uL (3.82-5.3); RED CELL DISTRIBUTION WIDTH 16.3 % (9.6-15.2)
[2018-12-24 03:46] LABS: ANION GAP 7 mmol/L (5-15); CALCIUM 7.7 mg/dL (8.5-10.1); CHLORIDE 109 mmol/L (98-107); CREATININE 0.54 mg/dL (0.55-1.02)
[2018-12-24 04:06] LABS: MD YES
[2018-12-24 04:09] LABS: ANISOCYTOSIS 1+; BAND#(MANUAL) 0.65 x10^3/uL; BANDS%(MANUAL) 3 % (0-7); EOS#(MANUAL) 0.22 x10^3/uL (0.0-0.4); EOS% (MANUAL) 1 % (1-7); LYMPH#(MANUAL) 1.08 x10^3/uL (1-3.4); LYMPHS% (MANUAL) 5 % (22-44); MONOS#(MANUAL) 0.65 x10^3/uL (0.3-2.7); MONOS% (MANUAL) 3 % (2-9); SEG#(MANUAL) 19.01 x10^3/uL (1.8-6.8); SEGS% (MANUAL) 88 % (42-75)
[2018-12-24 04:10] LABS: <PLATELET ESTIMATE> ADEQUATE; <PLT MORPHOLOGY> NORMAL PLT MORPH; POLYCHROMASIA 1+; TOXIC GRAN 1+
[2018-12-24 08:13] VITALS: BP 143/90
[2018-12-24] MEDS: PANTOPRAZOLE 40 MG IV IVPush SCH (09:22)
[2018-12-24] MEDS: ENOXAPARIN 40 MG/0.4 ML SQ SCH (09:22)
[2018-12-24] MEDS: ONDANSETRON 2MG/ML, 2ML IVPush PRN (09:23)
[2018-12-24] MEDS ORDERED: PROCHLORPERAZINE 5 MG/ML, 2ML IM PRN (10:00)
[2018-12-24] MEDS ORDERED: SCOPOLAMINE PATCH, 1.5MG PATCH.TD72 TD ONE (10:19)
[2018-12-24] MEDS: SCOPOLAMINE PATCH, 1.5MG PATCH.TD72 TD SCH (10:21)
[2018-12-24 14:10] VITALS: BP 154/83
[2018-12-24] MEDS: HYDROmorphone 2 MG/ML, 1ML IVPush PRN ×2 (15:54→21:04)
[2018-12-24] MEDS: FILTER, DISP 1.2 MICRON FOR TPN/PVN IV PRN (16:53)
[2018-12-24] MEDS ORDERED: DEXTROSE 70% IV SCH (17:00)
[2018-12-24] MEDS ORDERED: SMOF TPN IV SCH (17:00)
[2018-12-24] MEDS ORDERED: AMINO ACID 10% IV SCH (17:00)
[2018-12-24] MEDS ORDERED: [UNRECOGNIZED DRUG - OTHER] IV SCH (17:00)
[2018-12-24] MEDS ORDERED: FAT EMUL IV SCH (17:00)
[2018-12-24 20:27] VITALS: BP 123/77
[2018-12-25 00:50] VITALS: BP 136/77
[2018-12-25] MEDS: AMPICILLIN/SULBACTAM 3 GM in SODIUM CHLORIDE 0.9% 100 ML IV SCH ×4 (03:07→21:06)
[2018-12-25 03:37] LABS: MEAN CORPUSCULAR HEMOGLOBIN 28.2 pg (27.0-34.8); MEAN CORPUSCULAR HGB CONC 32.5 g/dL (32.4-35.8); MEAN CORPUSCULAR VOLUME 86.6 fL (80-100); MEAN PLATELET VOLUME 8.9 fL (7.4-10.4); PLATELET COUNT 442 x10^3/uL (130-400); RED BLOOD COUNT 3.14 x10^6/uL (3.82-5.3); RED CELL DISTRIBUTION WIDTH 16.2 % (9.6-15.2)
[2018-12-25 03:46] LABS: ANION GAP 7 mmol/L (5-15); CALCIUM 7.7 mg/dL (8.5-10.1); CHLORIDE 107 mmol/L (98-107); CREATININE 0.51 mg/dL (0.55-1.02)
[2018-12-25 03:56] LABS: BASOPHILS # (AUTO) 0.01 x10^3/uL (0-0.1); BASOPHILS % (AUTO) 0 % (0-1); EOSINOPHILS # (AUTO) 0.05 x10^3/uL (0-0.4); EOSINOPHILS % (AUTO) 0 % (1-7); LYMPHOCYTES # (AUTO) 1.44 x10^3/uL (1-3.4); LYMPHOCYTES % (AUTO) 7 % (22-44); MD NO; MONOCYTES # (AUTO) 1.99 x10^3/uL (0.2-0.8); MONOCYTES % (AUTO) 9 % (2-9); NEUTROPHILS # (AUTO) 17.77 x10^3/uL (1.8-6.8); NEUTROPHILS % (AUTO) 84 % (42-75)
[2018-12-25] MEDS: SODIUM CHLORIDE 0.45% 1,000 ML IV SCH (05:23)
[2018-12-25 06:45] VITALS: BP 133/73
[2018-12-25] MEDS: INSULIN REGULAR 100 UNITS/ML, 3ML VIAL SQ-INSULIN SCH (07:58)
[2018-12-25] MEDS: ENOXAPARIN 40 MG/0.4 ML SQ SCH (10:24)
[2018-12-25] MEDS: PANTOPRAZOLE 40 MG IV IVPush SCH (10:25)
[2018-12-25 14:55] VITALS: BP 140/77
[2018-12-25] MEDS ORDERED: FAT EMUL IV SCH (17:00)
[2018-12-25] MEDS ORDERED: [UNRECOGNIZED DRUG - OTHER] IV SCH (17:00)
[2018-12-25] MEDS ORDERED: SMOF TPN IV SCH (17:00)
[2018-12-25] MEDS ORDERED: DEXTROSE 70% IV SCH (17:00)
[2018-12-25] MEDS ORDERED: AMINO ACID 10% IV SCH (17:00)
[2018-12-25] MEDS: FILTER, DISP 1.2 MICRON FOR TPN/PVN IV PRN (17:38)
[2018-12-25] MEDS: HYDROmorphone 2 MG/ML, 1ML IVPush PRN (18:24)
[2018-12-25 20:29] VITALS: BP 130/56
[2018-12-26 02:02] VITALS: BP 139/70
[2018-12-26] MEDS: HYDROmorphone 2 MG/ML, 1ML IVPush PRN (02:30)
[2018-12-26] MEDS: AMPICILLIN/SULBACTAM 3 GM in SODIUM CHLORIDE 0.9% 100 ML IV SCH ×4 (02:57→21:31)
[2018-12-26] MEDS: SODIUM CHLORIDE 0.45% 1,000 ML IV SCH (02:57)
[2018-12-26 02:59] LABS: ANION GAP 5 mmol/L (5-15); CALCIUM 7.8 mg/dL (8.5-10.1); CHLORIDE 109 mmol/L (98-107); CREATININE 0.41 mg/dL (0.55-1.02)
[2018-12-26 06:43] VITALS: BP 136/76
[2018-12-26] MEDS: ENOXAPARIN 40 MG/0.4 ML SQ SCH (08:58)
[2018-12-26] MEDS: PANTOPRAZOLE 40 MG IV IVPush SCH (08:58)
[2018-12-26] MEDS: INSULIN REGULAR 100 UNITS/ML, 3ML VIAL SQ-INSULIN SCH (09:00)
[2018-12-26 12:59] VITALS: BP 135/73
[2018-12-26] MEDS ORDERED: AMINO ACID 10% IV SCH (17:00)
[2018-12-26] MEDS ORDERED: FAT EMULSIONS IV SCH (17:00)
[2018-12-26] MEDS ORDERED: [UNRECOGNIZED DRUG - OTHER] IV SCH (17:00)
[2018-12-26] MEDS ORDERED: DEXTROSE 70% IV SCH (17:00)
[2018-12-26] MEDS: FILTER, DISP 1.2 MICRON FOR TPN/PVN IV PRN (17:45)
[2018-12-26 20:33] VITALS: BP 141/63
[2018-12-26] MEDS: ENOXAPARIN 30 MG/0.3 ML SQ SCH (21:32)
[2018-12-27] MEDS: HYDROmorphone 2 MG/ML, 1ML IVPush PRN ×2 (00:52→20:38)
[2018-12-27 01:23] VITALS: BP 125/59
[2018-12-27] MEDS: SODIUM CHLORIDE 0.45% 1,000 ML IV SCH ×2 (01:47→13:02)
[2018-12-27] MEDS: AMPICILLIN/SULBACTAM 3 GM in SODIUM CHLORIDE 0.9% 100 ML IV SCH ×2 (03:15→10:20)
[2018-12-27 05:27] LABS: MEAN CORPUSCULAR HEMOGLOBIN 29.2 pg (27.0-34.8); MEAN CORPUSCULAR HGB CONC 33.3 g/dL (32.4-35.8); MEAN CORPUSCULAR VOLUME 87.7 fL (80-100); MEAN PLATELET VOLUME 9.1 fL (7.4-10.4); PLATELET COUNT 478 x10^3/uL (130-400); RED BLOOD COUNT 2.78 x10^6/uL (3.82-5.3); RED CELL DISTRIBUTION WIDTH 16.3 % (9.6-15.2)
[2018-12-27 05:34] LABS: ANION GAP 5 mmol/L (5-15); CALCIUM 7.9 mg/dL (8.5-10.1); CHLORIDE 107 mmol/L (98-107)
[2018-12-27 06:34] LABS: ANISOCYTOSIS 1+; BASOPHILS # (AUTO) 0.06 x10^3/uL (0-0.1); BASOPHILS % (AUTO) 0 % (0-1); EOSINOPHILS # (AUTO) 0.31 x10^3/uL (0-0.4); EOSINOPHILS % (AUTO) 2 % (1-7); LYMPHOCYTES # (AUTO) 1.69 x10^3/uL (1-3.4); LYMPHOCYTES % (AUTO) 9 % (22-44); MD MORPH REVIEW ONLY; MONOCYTES # (AUTO) 1.54 x10^3/uL (0.2-0.8); MONOCYTES % (AUTO) 8 % (2-9); NEUTROPHILS # (AUTO) 16.13 x10^3/uL (1.8-6.8); NEUTROPHILS % (AUTO) 82 % (42-75); POLYCHROMASIA 1+; TOXIC GRAN 1+
[2018-12-27 06:35] LABS: <PLATELET ESTIMATE> INCREASED; LARGE PLATELETS 1+
[2018-12-27] MEDS: PANTOPRAZOLE 40 MG IV IVPush SCH (07:54)
[2018-12-27] MEDS: ENOXAPARIN 30 MG/0.3 ML SQ SCH ×2 (07:54→20:37)
[2018-12-27] MEDS: INSULIN REGULAR 100 UNITS/ML, 3ML VIAL SQ-INSULIN SCH (07:55)
[2018-12-27 08:35] VITALS: BP 142/81
[2018-12-27] MEDS ORDERED: OMNIPAQUE 350 MG/ML, 100ML BOTTLE ONE (09:18)
[2018-12-27] MEDS: SCOPOLAMINE PATCH, 1.5MG PATCH.TD72 TD SCH (10:30)
[2018-12-27] MEDS ORDERED: AMPICILLIN/SULBACTAM 3 GM in SODIUM CHLORIDE 0.9% 100 ML IV SCH (14:00)
[2018-12-27 14:33] VITALS: BP 144/76
[2018-12-27] MEDS ORDERED: AMINO ACID 10% IV SCH (17:00)
[2018-12-27] MEDS ORDERED: [UNRECOGNIZED DRUG - OTHER] IV SCH (17:00)
[2018-12-27] MEDS ORDERED: FAT EMULSIONS IV SCH (17:00)
[2018-12-27] MEDS ORDERED: DEXTROSE 70% IV SCH (17:00)
[2018-12-27] MEDS: FILTER, DISP 1.2 MICRON FOR TPN/PVN IV PRN (17:09)
[2018-12-27 19:57] VITALS: BP 158/84
[2018-12-28 00:33] VITALS: BP 144/82
[2018-12-28 06:25] LABS: MEAN CORPUSCULAR HGB CONC 33.2 g/dL (32.4-35.8); MEAN CORPUSCULAR VOLUME 87.4 fL (80-100); MEAN PLATELET VOLUME 8.9 fL (7.4-10.4); PLATELET COUNT 524 x10^3/uL (130-400); RED BLOOD COUNT 2.84 x10^6/uL (3.82-5.3); RED CELL DISTRIBUTION WIDTH 16.9 % (9.6-15.2)
[2018-12-28 06:34] LABS: ANION GAP 6 mmol/L (5-15); CALCIUM 7.8 mg/dL (8.5-10.1); CHLORIDE 104 mmol/L (98-107); CREATININE 0.44 mg/dL (0.55-1.02)
[2018-12-28 06:35] VITALS: BP 151/80
[2018-12-28 07:22] LABS: MD YES
[2018-12-28 07:23] LABS: BAND#(MANUAL) 1.12 x10^3/uL; BANDS%(MANUAL) 6 % (0-7); BASOS#(MANUAL) 0.19 x10^3/uL (0-0.1); BASOS% (MANUAL) 1 % (0-1); EOS#(MANUAL) 0.19 x10^3/uL (0.0-0.4); EOS% (MANUAL) 1 % (1-7); LYMPH#(MANUAL) 1.86 x10^3/uL (1-3.4); LYMPHS% (MANUAL) 10 % (22-44); METAMYELOCYTES# (MANUAL) 0.19 x10^3/uL (0-0); METAMYELOCYTES% (MANUAL) 1 % (0-1); MONOS#(MANUAL) 1.12 x10^3/uL (0.3-2.7); MONOS% (MANUAL) 6 % (2-9); SEG#(MANUAL) 13.95 x10^3/uL (1.8-6.8); SEGS% (MANUAL) 75 % (42-75)
[2018-12-28 07:24] LABS: ANISOCYTOSIS 1+; POLYCHROMASIA 1+
[2018-12-28 07:25] LABS: <PLATELET ESTIMATE> INCREASED; <PLT MORPHOLOGY> NORMAL PLT MORPH; TOXIC GRAN 1+
[2018-12-28] MEDS: ENOXAPARIN 30 MG/0.3 ML SQ SCH ×2 (07:33→21:23)
[2018-12-28] MEDS: INSULIN REGULAR 100 UNITS/ML, 3ML VIAL SQ-INSULIN SCH (07:33)
[2018-12-28] MEDS: PANTOPRAZOLE 40 MG IV IVPush SCH (07:33)
[2018-12-28 13:32] VITALS: BP 136/84
[2018-12-28] MEDS ORDERED: FAT EMULSIONS IV SCH (17:00)
[2018-12-28] MEDS ORDERED: [UNRECOGNIZED DRUG - OTHER] IV SCH (17:00)
[2018-12-28] MEDS ORDERED: AMINO ACID 10% IV SCH (17:00)
[2018-12-28] MEDS ORDERED: DEXTROSE 70% IV SCH (17:00)
[2018-12-28 19:55] VITALS: BP 144/80
[2018-12-28] MEDS: HYDROmorphone 2 MG/ML, 1ML IVPush PRN (21:24)
[2018-12-29 00:37] VITALS: BP 151/82
[2018-12-29 05:28] LABS: MEAN CORPUSCULAR HEMOGLOBIN 28.9 pg (27.0-34.8); MEAN CORPUSCULAR HGB CONC 33.5 g/dL (32.4-35.8); MEAN CORPUSCULAR VOLUME 86.4 fL (80-100); MEAN PLATELET VOLUME 8.9 fL (7.4-10.4); PLATELET COUNT 524 x10^3/uL (130-400); RED BLOOD COUNT 2.84 x10^6/uL (3.82-5.3); RED CELL DISTRIBUTION WIDTH 16.9 % (9.6-15.2)
[2018-12-29 05:38] LABS: ANION GAP 4 mmol/L (5-15); CALCIUM 7.8 mg/dL (8.5-10.1); CHLORIDE 103 mmol/L (98-107); CREATININE 0.39 mg/dL (0.55-1.02)
[2018-12-29 06:21] LABS: BASOPHILS % (AUTO) 0 % (0-1); EOSINOPHILS # (AUTO) 0.21 x10^3/uL (0-0.4); EOSINOPHILS % (AUTO) 1 % (1-7); LYMPHOCYTES # (AUTO) 2.12 x10^3/uL (1-3.4); LYMPHOCYTES % (AUTO) 12 % (22-44); MD SCAN; MONOCYTES # (AUTO) 1.18 x10^3/uL (0.2-0.8); MONOCYTES % (AUTO) 7 % (2-9); NEUTROPHILS # (AUTO) 13.79 x10^3/uL (1.8-6.8); NEUTROPHILS % (AUTO) 80 % (42-75)
[2018-12-29] MEDS: METOPROLOL TARTRATE 25 MG TABLET PO SCH (09:36)
[2018-12-29] MEDS: ENOXAPARIN 30 MG/0.3 ML SQ SCH ×2 (09:36→21:04)
[2018-12-29] MEDS: PANTOPRAZOLE 40 MG IV IVPush SCH (09:36)
[2018-12-29 09:39] VITALS: BP 126/76
[2018-12-29] MEDS ORDERED: FUROSEMIDE 40 MG/4 ML IV ONE (10:30)
[2018-12-29 16:15] VITALS: BP 115/73
[2018-12-29 20:41] VITALS: BP 138/78
[2018-12-29] MEDS: HYDROmorphone 2 MG/ML, 1ML IVPush PRN (21:04)
[2018-12-30 00:38] VITALS: BP 150/77
[2018-12-30 04:43] LABS: BASOPHILS # (AUTO) 0.06 x10^3/uL (0-0.1); BASOPHILS % (AUTO) 0 % (0-1); EOSINOPHILS % (AUTO) 2 % (1-7); LYMPHOCYTES # (AUTO) 2.23 x10^3/uL (1-3.4); LYMPHOCYTES % (AUTO) 14 % (22-44); MD NO; MEAN CORPUSCULAR HEMOGLOBIN 28.5 pg (27.0-34.8); MEAN CORPUSCULAR HGB CONC 33.2 g/dL (32.4-35.8); MEAN CORPUSCULAR VOLUME 85.9 fL (80-100); MEAN PLATELET VOLUME 8.8 fL (7.4-10.4); MONOCYTES # (AUTO) 1.01 x10^3/uL (0.2-0.8); MONOCYTES % (AUTO) 7 % (2-9); NEUTROPHILS % (AUTO) 77 % (42-75); PLATELET COUNT 555 x10^3/uL (130-400); RED BLOOD COUNT 2.97 x10^6/uL (3.82-5.3); RED CELL DISTRIBUTION WIDTH 16.5 % (9.6-15.2)
[2018-12-30 04:52] LABS: ALBUMIN 1.1 g/dL (3.4-5.0); ANION GAP 7 mmol/L (5-15); CALCIUM 7.6 mg/dL (8.5-10.1); CHLORIDE 103 mmol/L (98-107); CREATININE 0.48 mg/dL (0.55-1.02)
[2018-12-30 06:36] VITALS: BP 129/53
[2018-12-30] MEDS: SCOPOLAMINE PATCH, 1.5MG PATCH.TD72 TD SCH (10:38)
[2018-12-30] MEDS: ENOXAPARIN 30 MG/0.3 ML SQ SCH ×2 (10:38→20:09)
[2018-12-30] MEDS: METOPROLOL TARTRATE 25 MG TABLET PO SCH (10:38)
[2018-12-30] MEDS: PANTOPRAZOLE 40 MG IV IVPush SCH (10:38)
[2018-12-30 12:27] VITALS: BP 120/67
[2018-12-30 15:52] LABS: MICROSCOPIC NOT IND
[2018-12-30 20:15] VITALS: BP 130/77
[2018-12-31 01:15] VITALS: BP 125/76
[2018-12-31 04:28] LABS: ANION GAP 6 mmol/L (5-15); CALCIUM 7.7 mg/dL (8.5-10.1); CHLORIDE 105 mmol/L (98-107); CREATININE 0.49 mg/dL (0.55-1.02)
[2018-12-31 07:25] VITALS: BP 137/61
[2018-12-31] MEDS: METOPROLOL TARTRATE 25 MG TABLET PO SCH (07:52)
[2018-12-31] MEDS: PANTOPRAZOLE 40 MG IV IVPush SCH (08:11)
[2018-12-31] MEDS: ENOXAPARIN 30 MG/0.3 ML SQ SCH ×2 (08:11→20:58)
[2018-12-31] MEDS ORDERED: MIDAZOLAM 1 MG/ML, 5ML ONE (09:49)
[2018-12-31] MEDS ORDERED: FENTANYL PF 100 MCG/2ML ONE (09:49)
[2018-12-31 14:55] VITALS: BP 123/69
[2018-12-31 19:43] VITALS: BP 132/68
[2018-12-31] MEDS: HYDROmorphone 2 MG/ML, 1ML IVPush PRN (20:57)
[2019-01-01 01:57] VITALS: BP 149/82
[2019-01-01 05:23] LABS: ANION GAP 5 mmol/L (5-15); CALCIUM 7.6 mg/dL (8.5-10.1); CHLORIDE 102 mmol/L (98-107); CREATININE 0.43 mg/dL (0.55-1.02)
[2019-01-01] MEDS ORDERED: PANTOPROZOLE 40MG TABLET PO SCH (06:00)
[2019-01-01 06:42] VITALS: BP 142/63
[2019-01-01] MEDS: METOPROLOL TARTRATE 25 MG TABLET PO SCH (09:04)
[2019-01-01] MEDS: ENOXAPARIN 30 MG/0.3 ML SQ SCH (09:04)
[2019-01-01] MEDS ORDERED: OXYcodone/APAP 5/325MG TABLET PO ONE (11:30)
[2019-01-01 12:58] VITALS: BP 139/67
[2019-01-01] MEDS ORDERED: SCOP1PAT11 TD (14:06)
[2019-01-01] MEDS ORDERED: TRAM50TA2 PO (14:07)
[2019-01-01] MEDS ORDERED: HYDR-826 PO (14:10)
[2019-01-01] MEDS ORDERED: HYDR2VIA2 IVPush (14:10)
[2019-01-01] MEDS ORDERED: ENOX30DI3 SQ (14:10)
[2019-01-01] MEDS ORDERED: ONDA4VIA60 IVPush (14:10)
[2019-01-01] MEDS ORDERED: METO25TA35 PO (14:10)
[2019-01-13] MEDS ORDERED: NYSTATIN POWDER (16:18)
[2019-01-13] MEDS ORDERED: PARO10TA56 PO (16:18)
[2019-01-13] MEDS ORDERED: OXYCODONE PO (16:18)
[2019-01-13] MEDS ORDERED: ARGI1POW19 PO (16:18)
[2019-01-13] MEDS ORDERED: MELA3TAB56 PO (16:18)
[2019-01-13] MEDS ORDERED: PSYL1PAC9 PO (16:18)
[2019-01-18] MEDS ORDERED: MORP100S3 PO (09:13)
[2019-01-18] MEDS ORDERED: OXYC20OR8 PO (09:13)
[2019-01-18] MEDS ORDERED: METO25TA35 PO (09:13)
== END 2019-01-01 14:54 | DRG 326 ==
LOC: ED 05:32 → EDIP 07:59 → 4NOR 16:44 → 3NW 19:31 → 3N 12-17 10:12 → 4NW 12-17 14:08
PROVIDERS: ADMIT Family Medicine; ATTEND Family Medicine
PROC: 0DB60ZZ Excision of Stomach, Open Approach (ICD-10-PCS; 2018-12-13)
PROC: 0D1B0Z4 Bypass Ileum to Cutaneous, Open Approach (ICD-10-PCS; 2018-12-13)
PROC: 0FB00ZX Excision of Liver, Open Approach, Diagnostic (ICD-10-PCS; 2018-12-13)
PROC: 3E0T3BZ Introduction of Anesthetic Agent into Peripheral Nerves and Plexi, Percutaneous Approach (ICD-10-PCS; 2018-12-13)
PROC: 0DTE0ZZ Resection of Large Intestine, Open Approach (ICD-10-PCS; principal; 2018-12-13 13:15)
PROC: 02HV33Z Insertion of Infusion Device into Superior Vena Cava, Percutaneous Approach (ICD-10-PCS; 2018-12-18)
PROC: B548ZZA Ultrasonography of Superior Vena Cava, Guidance (ICD-10-PCS; 2018-12-18)
PROC: B5181ZA Fluoroscopy of Superior Vena Cava using Low Osmolar Contrast, Guidance (ICD-10-PCS; 2018-12-18)
PROC: 3E0436Z Introduction of Nutritional Substance into Central Vein, Percutaneous Approach (ICD-10-PCS; 2018-12-19)
PROC: 0T9B70Z Drainage of Bladder with Drainage Device, Via Natural or Artificial Opening (ICD-10-PCS; 2018-12-30)
DX: C7A.029 Malignant carcinoid tumor of the large intestine, unspecified portion (principal); K63.1 Perforation of intestine (nontraumatic); K65.1 Peritoneal abscess; C7B.02 Secondary carcinoid tumors of liver; J98.11 Atelectasis; K56.609 Unspecified intestinal obstruction, unspecified as to partial versus complete obstruction; C78.02 Secondary malignant neoplasm of left lung; C78.01 Secondary malignant neoplasm of right lung; C79.31 Secondary malignant neoplasm of brain; C78.7 Secondary malignant neoplasm of liver and intrahepatic bile duct; D63.8 Anemia in other chronic diseases classified elsewhere; D73.5 Infarction of spleen; E66.9 Obesity, unspecified; E78.00 Pure hypercholesterolemia, unspecified; E78.5 Hyperlipidemia, unspecified; E86.0 Dehydration; E87.5 Hyperkalemia; F17.210 Nicotine dependence, cigarettes, uncomplicated; F41.9 Anxiety disorder, unspecified; G89.3 Neoplasm related pain (acute) (chronic); I10 Essential (primary) hypertension; N14.1 Nephropathy induced by other drugs, medicaments and biological substances; R13.10 Dysphagia, unspecified; T50.8X5A Adverse effect of diagnostic agents, initial encounter; Z90.3 Acquired absence of stomach [part of]; Z90.49 Acquired absence of other specified parts of digestive tract; Z90.710 Acquired absence of both cervix and uterus; Z68.39 Body mass index [BMI] 39.0-39.9, adult; R79.89 Other specified abnormal findings of blood chemistry
CPT/HCPCS: 36415; 36573; 70553; 71260; 74018; 74021; 74177; 80048; 80053; 81003; 82040; 82140; 82378; 82962; 83605; 83690; 83735; 84100; 84134; 84478; 84550; 85025; 85610; 85651; 85730; 86140; 87040; 87070; 87075; 87076; 87077; 87186; 87205; 87449; 88307; 88309; 88341; 88342; 88360; 90648; 90732; 90734; 93005; 99156; 99157; 99285; G0378; J0295; J0610; J0690; J1100; J1170; J1450; J1650; J1815; J1885; J1940; J2250; J2405; J2543; J2704; J2710; J3010; J3475; J3480; Q9967; C1751; C9113; J0330; J0780; J2060; J2270; J3420; J3490; J7030; J7040; J7050; J7120; Q0177